=== PATIENT | male | born 1965 | race African-American/Black ===

== ENCOUNTER 2022-12-25 12:01 | Observation (INO) ==
[2022-12-25] MEDS ORDERED: Albuterol HFA INHALER 8 gm MDI INH ONE (12:17)
[2022-12-25 12:30] LABS: ABS Basophils 0.1 10^3/uL (0.0-0.1); ABS Eosinophils 0.3 10^3/uL (0.0-0.5); ABS Lymphocytes 2.1 10^3/uL (1.0-4.8); ABS Monocytes 0.5 10^3/uL (0.0-1.1); ABS Neutrophils 3.3 10^3/uL (1.5-7.6); ABS Nucleated RBC 0.01 10^3/ul; Eosinophil % 5.5 %; Hemoglobin 14.7 g/dL (13.2-16.3); Lymphocyte % 33.6 %; Mean Corpuscular Hemoglobin 28.7 pg (27-33); Mean Corpuscular Hgb Conc 33.5 g/dL (31-36); Mean Corpuscular Volume 85.6 fL (80-97); Mean Platelet Volume 8.1 fL (7.5-11.2); Nucleated Red Blood Cells % 0.2 /100 WBC (0.0-0.4); Platelet Count 298 10^3/uL (150-450); Red Blood Count 5.14 10^6/uL (4.06-5.63); Red Cell Distribution Width 14.5 % (12-17); White Blood Count 6.3 10^3/uL (3.6-10.2)
[2022-12-25 12:48] LABS: ALT 25 U/L (7-52); Albumin 4.4 g/dL (3.2-5.2); Albumin/Globulin Ratio 1.2 (1-3); Alkaline Phosphatase 70 U/L (35-149); Blood Urea Nitrogen 18 mg/dL (6-24); CO2 Carbon Dioxide 26 mmol/L (22-32); Calcium 9.5 mg/dL (8.6-10.3); Chloride 104 mmol/L (101-111); Creatinine, Serum 1.13 mg/dL (0.67-1.17); Globulin 3.7 g/dL (2-4); Glucose 92 mg/dL (70-100); Sodium 137 mmol/L (135-145); Total Protein 8.1 g/dL (6.4-8.9); eGFR CKD-EPI 76.8 (>60)
[2022-12-25 12:53] LABS: High Sens Troponin Baseline 8 pg/mL (<20)
[2022-12-25 12:55] LABS: Anion Gap 7 mmol/L (2-16)
[2022-12-25 13:57] LABS: High Sensitivity Troponin 1 Hr 7 pg/mL (<20)
[2022-12-25 15:20] LABS: Potassium Redraw 3.7 mmol/L (3.5-5.0)
[2022-12-25] MEDS ORDERED: Albuterol HFA INHALER 8 gm MDI INH PRN (15:45)
[2022-12-25] MEDS ORDERED: Enoxaparin 40 MG/0.4 ML SYR SUBCUT SCH (17:00)
[2022-12-25] MEDS ORDERED: hydrALAZINE 20 mg/ml 1 ML Vial IV IV SLOW PU PRN (18:03)
[2022-12-26 06:24] LABS: ABS Basophils 0.1 10^3/uL (0.0-0.1); ABS Eosinophils 0.4 10^3/uL (0.0-0.5); ABS Lymphocytes 2.1 10^3/uL (1.0-4.8); ABS Monocytes 0.4 10^3/uL (0.0-1.1); ABS Neutrophils 2.9 10^3/uL (1.5-7.6); Eosinophil % 6.2 %; Hemoglobin 14.3 g/dL (13.2-16.3); Lymphocyte % 36.2 %; Mean Corpuscular Hemoglobin 29.1 pg (27-33); Mean Corpuscular Hgb Conc 34.1 g/dL (31-36); Mean Corpuscular Volume 85.3 fL (80-97); Mean Platelet Volume 8.6 fL (7.5-11.2); Platelet Count 246 10^3/uL (150-450); Red Blood Count 4.93 10^6/uL (4.06-5.63); Red Cell Distribution Width 14.4 % (12-17); White Blood Count 5.8 10^3/uL (3.6-10.2)
[2022-12-26 06:44] LABS: Calcium 8.7 mg/dL (8.6-10.3); Creatinine, Serum 1.14 mg/dL (0.67-1.17); HDL Cholesterol 37.2 mg/dL; Magnesium 1.9 mg/dL (1.9-2.7); Potassium 3.8 mmol/L (3.5-5.0)
[2022-12-26] MEDS ORDERED: Regadenoson 0.4 MG/5 ML SYRINGE ONE (09:07)
[2022-12-26] MEDS ORDERED: Aminophylline 25 MG/ML VIAL ONE (09:07)
[2022-12-26 13:18] VITALS: BP 152/86
== END 2022-12-26 14:30 | disposition home or self-care (01) ==
LOC: EDHOLD 12:01 → ED 12:01 → MEDTELE 17:51
PROVIDERS: ADMIT Internal Medicine; ATTEND Internal Medicine